=== PATIENT | female | born 1985 | race Caucasian/White ===

== ENCOUNTER 2017-10-13 22:40 | Emergency (ER) | payer MEDICAID ==
[2017-10-14] MEDS: TETRACAINE 0.5% 4 ML OPH BOTH EYES (03:48)
[2017-10-14] MEDS: FLUORESCEIN STRIP LEFT EYE (03:48)
== END 2017-10-14 04:32 | disposition home or self-care (01) ==
LOC: FTE 22:40
DX: O99.89 Other specified diseases and conditions complicating pregnancy, childbirth and the puerperium (principal); H11.152 Pinguecula, left eye
CPT/HCPCS: 99283; Z7610